=== PATIENT | male | born 1955 | race Caucasian/White ===

== ENCOUNTER → 2017-10-21 | Outpatient (CLI) | payer BC ==
[~2017-10-21] MED LIST: ACTOS15 MG; ASPIR-LOX325 MG PO; ASPIRIN81 M1; AUGMENTIN 875875 MG PO; BACTRIM DS 8001 TA1 PO; CRESTOR20 MG PO; CRESTOR5 MG; GLIPIZIDE10 MG PO; HYDROCODONE BIT1 T11 PO; LISINOPRIL10 MG PO; LISINOPRIL2.5 MG; LOPRESSOR25 MG; METFORMIN500 MG; Metformin Hydr500 MG PO; ULTRAM50 MG PO
[2017-10-21 14:26] LABS: BASO # 0.1 10*3/uL (0.0-0.1); EOS # 0.5 10*3/uL (0.0-0.4); EOS % 6.9 % (1.0-4.0); HEMATOCRIT 44.9 % (42.0-52.0); HEMOGLOBIN 14.8 g/dl (14.0-18.0); LYMPH # 2.2 10*3/uL (1.3-4.4); LYMPH % 29.7 % (27.0-41.0); MEAN CELL VOLUME 89.1 fl (80.0-94.0); MEAN CORPUSCULAR HGB 29.4 pg (27.0-31.0); MEAN PLATELET VOLUME 10.2 fl (9.6-12.3); MONO # 0.7 10*3/uL (0.1-1.0); MONO % 9.3 % (3.0-9.0); NEUT # 3.8 10*3/uL (2.3-7.9); NEUT % 52.4 % (47.0-73.0); PLATELET COUNT AUTOMATED 317 10*3/uL (130-400); RED BLOOD COUNT 5.04 10*6/uL (4.50-5.90); RED CELL DISTRI WIDTH 13.9 % (0-14.5); WHITE BLOOD COUNT 7.2 10*3/uL (4.8-10.8)
[2017-10-21 14:43] LABS: ALBUMIN 4.1 gm/dl (3.1-4.5); ALKALINE PHOSPHATASE 76 U/L (45-117); BUN 34 mg/dl (7-24); CHLORIDE 104 mmol/L (98-107); CHOLESTEROL 168 mg/dL (<200); CPK 39 U/L (39-308); CREATININE 1.35 mg/dL (0.70-1.30); GAMMA GLUTAMYL TRANSPEPTIDASE 14 U/L (15-85); HDL CHOLESTEROL 48 mg/dl (40-60); LDL CHOLESTEROL 79 mg/dL (9-159); POTASSIUM 5.5 mmol/L (3.5-5.1); SGOT/AST 22 IU/L (3-35); SGPT/ALT 27 U/L (12-78); SODIUM 139 mmol/L (136-145); TOTAL PROTEIN 8.3 gm/dL (6.4-8.2); TRIGLYCERIDES 204 mg/dl (<150); VLDL CHOLESTEROL 41 mg/dL (6-40)
[2017-10-21 15:37] LABS: VITAMIN D, 25-HYDROXY 7.4 ng/mL (30-100)
== END | disposition home or self-care (01) ==
LOC: LAB 14:00
PROVIDERS: Family Medicine
DX: R79.89 Other specified abnormal findings of blood chemistry (principal); R53.83 Other fatigue; E78.5 Hyperlipidemia, unspecified

== ENCOUNTER → 2018-11-11 | Outpatient (CLI) | payer BC ==
[2018-11-11 12:21] LABS: BILIRUBIN NEGATIVE (NEGATIVE); BLOOD NEGATIVE (NEGATIVE); CLARITY CLEAR (CLEAR); COLOR YELLOW (YELLOW); GLUCOSE NEGATIVE (NEGATIVE); KETONE TRACE (NEGATIVE); LEUKO ESTERASE NEGATIVE (NEGATIVE); NITRITE NEGATIVE (NEGATIVE); PH 5.5 (5.0-9.0); SPECIFIC GRAVITY >= 1.030 (1.005-1.030); UROBILINOGEN 0.2 E.U./dl (0.2-1.0)
[2018-11-11 12:26] LABS: ALKALINE PHOSPHATASE 65 U/L (45-117); BILIRUBIN, DIRECT 0.2 mg/dL (0.0-0.2); BUN 18 mg/dl (7-24); CHLORIDE 106 mmol/L (98-107); CHOLESTEROL 150 mg/dL (<200); CREATININE 1.09 mg/dL (0.70-1.30); FREE T4 0.82 ng/dl (0.76-1.46); HDL CHOLESTEROL 42 mg/dl (40-60); LDL CHOLESTEROL 75 mg/dL (9-159); POTASSIUM 4.9 mmol/L (3.5-5.1); SGOT/AST 23 IU/L (3-35); SGPT/ALT 28 U/L (12-78); SODIUM 139 mmol/L (136-145); TOTAL PROTEIN 7.9 gm/dL (6.4-8.2); TRIGLYCERIDES 165 mg/dl (<150); VLDL CHOLESTEROL 33 mg/dL (6-40)
[2018-11-11 12:30] LABS: VITAMIN D, 25-HYDROXY 18.8 ng/mL (30-100)
[2018-11-11 14:23] LABS: BACTERIA 1+; EPITHELIAL CELLS 0-2; FINE GRANULAR CAST 0-2; WBC 0-2 wbc/hpf (0-5)
== END | disposition home or self-care (01) ==
LOC: LAB 11:26
PROVIDERS: Internal Medicine
DX: E11.40 Type 2 diabetes mellitus with diabetic neuropathy, unspecified (principal); E11.65 Type 2 diabetes mellitus with hyperglycemia; E04.9 Nontoxic goiter, unspecified; E78.5 Hyperlipidemia, unspecified; E55.9 Vitamin D deficiency, unspecified

== ENCOUNTER 2021-05-13 17:59 | Emergency (ER) | payer OTHER ==
[~2021-05-13] VITALS: Ht 180.3 cm; Wt 94.3 kg
[2021-05-13 18:31] VITALS: BP 109/80
[2021-05-13] MEDS ORDERED: KENALOG 0.025%15 GM T (20:42)
== END 2021-05-13 20:50 | disposition home or self-care (01) ==
LOC: ED 17:59
DX: L25.9 Unspecified contact dermatitis, unspecified cause (principal); I10 Essential (primary) hypertension; E78.5 Hyperlipidemia, unspecified; E11.9 Type 2 diabetes mellitus without complications; Z79.2 Long term (current) use of antibiotics; Z79.899 Other long term (current) drug therapy; Z79.82 Long term (current) use of aspirin; Z98.890 Other specified postprocedural states